=== PATIENT | female | born 1990 | race Hispanic/Latino ===

== ENCOUNTER 2017-05-24 12:36 | Emergency (ER) | payer OTHER ==
[2017-05-24 12:42] VITALS: BP 134/84; PULSE 75; RESP 16; TEMP 98.5; O2SAT 100
[2017-05-24 12:45] VITALS: BMI 22.3
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
--- NOTE | 2017-05-24 14:03 | RAD ---
PROCEDURE: Cervical Spine Radiographs. HISTORY: Pain. COMPARISON: None. FINDINGS: BONES: No evidence of fracture. DISC SPACES: Normal. SOFT TISSUES: Normal. No prevertebral soft tissue swelling. OTHER FINDINGS: None. IMPRESSION: Normal cervical spine radiographs
== END 2017-05-24 13:38 | disposition home or self-care (01) ==
LOC: ED 12:36
DX: S16.1XXA Strain of muscle, fascia and tendon at neck level, initial encounter (principal); V49.9XXA Car occupant (driver) (passenger) injured in unspecified traffic accident, initial encounter